=== PATIENT | male | born 1990 | race Caucasian/White ===

== ENCOUNTER 2020-07-27 12:50 | Emergency (ER) | payer OTHER, SELFPAY ==
[2020-07-27 13:05] VITALS: BP 130/82; PULSE 119; RESP 20; TEMP 37.1; O2SAT 96; BMI 29.1
--- NOTE | 2020-07-27 13:09 | DI.RAD.S_ITS ---
PROCEDURE: XR ANKLE LT MIN 3V INDICATIONS: rolled ankle on 07/26/20 TECHNIQUE: 3 views of the ankle were acquired. COMPARISON: None. FINDINGS: Bones: No fractures or dislocations. Ankle mortise is normally aligned. No suspicious bony lesions. The talar dome demonstrates no sandra abnormality. Soft tissues: Generalized soft tissue swelling is seen, which is worst laterally. IMPRESSION: Soft tissue swelling is seen, without an acute bony abnormality seen by plain film. If there is point tenderness (or other clinical suspicion for a fracture not seen on these images) then a dedicated CT or a short-term followup plain film series could be considered for further evaluation, as clinically appropriate. Dictated by: Delfino Vaughn M.D. on 07/27/2020 at 12:37 Approved by: Delfino Vaughn M.D. on 07/27/2020 at 12:38
--- NOTE | 2020-07-27 15:05 | ED.LOWEXIN ---
HPI - Extremity Injury (Lower) General Chief Complaint: Extremity Injury, Lower Stated Complaint: Twisted LT ankle Time Seen by Provider: 07/27/20 14:49 Source: patient Mode of arrival: Family Vehicle Limitations: no limitations History of Present Illness HPI Narrative: 29-year-old otherwise healthy gentleman was playing football in his backyard, stumbled on the uneven ground and had an inversion twisting injury to the left ankle. With ibuprofen, elevation and ice last night the pain is continued and he is unable to bear weight today he comes in for further evaluation. Related Data Previous Rx's Medication Instructions Recorded oxycodone-acetaminophen 1 tab PO Q6H PRN #14 tab 07/27/20 Review of Systems Review of Systems Narrative: Pertinent positive and negative findings as per HPI Remainder of review of systems is otherwise unremarkable for Constitutional: Fevers, chills, weakness ENT: No sore throat, neck pain, ear pain CV: Chest pain, palpitations, dyspnea on exertion Respiratory: Cough, wheeze, dyspnea GI: Nausea, vomiting, diarrhea, Patient History Social History Smoking Status: Current every day smoker Smoking Status: Current every day smoker tobacco type: cigarettes alcohol intake frequency: 0-2 drinks per day Substance Use Type: does not use Exam Narrative Exam Narrative: General: Alert appropriate in no acute distress Respiratory: Able to speak in full sentences, no obvious respiratory distress Skin: No obvious rashes, warm and dry Neurologic: Grossly intact no obvious asymmetries or abnormalities Psych: appropriate insight and affect, cooperative Extremity: Left ankle with significant swelling on the lateral aspect tender to the left lateral malleolus without hematoma. Initial Vital Signs Initial Vital Signs: Vital Signs Temperature 98.8 F 07/27/20 13:05 Pulse Rate 119 H 07/27/20 13:05 Respiratory Rate 20 07/27/20 13:05 Blood Pressure 130/82 07/27/20 13:05 Pulse Oximetry 96 07/27/20 13:05 Procedures Orthopedic Splinting/Casting Left ankle sprain: Side: left Lower Extremity Injury Location: ankle Lower Extremity Immobilizer: stirrup splint Post splinting neuro exam: intact Post splinting vascular exam: intact Placed by: Provider Course Orders Ordered: ED Orders 07/27/20 13:09 XR ankle LT min 3V Stat Discontinued Medications Ibuprofen (Ibuprofen 400 Mg Tablet) 400 mg PO NOW ONE Stop: 07/27/20 15:05 Last Admin: 07/27/20 15:33 Dose: 400 mg Documented by: NATASHA Oxycodone/Acetaminophen (Oxycodone/Acetaminophen 5/325 Tablet) 1 tab PO NOW ONE Stop: 07/27/20 15:05 Last Admin: 07/27/20 15:32 Dose: 1 tab Documented by: NATASHA Vital Signs Vital signs: Vital Signs - 8 hr 07/27/20 13:05 07/27/20 15:34 Temperature 98.8 F Pulse Rate 119 H 97 H Respiratory Rate 20 16 Blood Pressure 130/82 Pulse Oximetry 96 97 MDM - Extremity Injury (Lower) Imaging Data X-ray ankle: Radiologist's Impression: FINDINGS: Bones: No fractures or dislocations. Ankle mortise is normally aligned. No suspicious bony lesions. The talar dome demonstrates no sandra abnormality. Soft tissues: Generalized soft tissue swelling is seen, which is worst laterally. IMPRESSION: Soft tissue swelling is seen, without an acute bony abnormality seen by plain film. If there is point tenderness (or other clinical suspicion for a fracture not seen on these images) then a dedicated CT or a short-term followup plain film series could be considered for further evaluation, as clinically appropriate. Dictated by: Delfino Vaughn M.D. on 07/27/2020 at 12:37 MDM Narrative Medical decision making narrative: 29-year-old gentleman with inversion injury of the ankle 24 hours ago increasingly swollen and painful. No obvious fracture. He is placed in an air splint and is safe for home discharge. Discharge Plan Departure Patient Disposition: Home Clinical Impression: Ankle sprain and strain Instructions: DI for Ankle Sprain Activity Restrictions/Additional Instructions: Thank you for coming in today The ankle is significantly sprained but there are no broken bones. I have given you an ankle stirrup splint to help with comfort and stability. You can use crutches as needed to help with mobility. You can walk on the ankle when pain allows you to do so. Using 400 mg of ibuprofen (2 [id number] pills) and 1 Tylenol every 6 hours can be very helpful in controlling pain. Using to ibuprofen and 1 Percocet every 6 hours for severe pain. [facility] [place] Ice and elevation can also be helpful. [place] and length of need for light duty options at work.\ I hope you heal quickly Prescriptions: New oxycodone-acetaminophen 5-325 mg tablet 1 tab PO Q6H PRN (Reason: pain) Qty: 14 RF: 0 Stand Alone Forms: Work Release Note
[2020-07-27] MEDS: OXYCODONE/ACETAMINOPHEN 5/325 TABLET 1 TAB PO (15:32)
[2020-07-27] MEDS: IBUPROFEN 400 MG TABLET PO (15:33)
[2020-07-27 15:34] VITALS: PULSE 97; RESP 16; O2SAT 97
== END 2020-07-27 15:36 | disposition home or self-care (01) ==
PROVIDERS: Emergency Provider Emergency Medicine
DX: S93.402A Sprain of unspecified ligament of left ankle, initial encounter (principal); S96.912A Strain of unspecified muscle and tendon at ankle and foot level, left foot, initial encounter; X50.1XXA Overexertion from prolonged static or awkward postures, initial encounter
CPT/HCPCS: 73610; 99283; 99284